=== PATIENT | female | born 1945 | race Two or more races ===

== ENCOUNTER 2024-11-02 11:35 | Emergency (ER) | payer OTHER ==
[~2024-11-02] VITALS: Ht 147.3 cm; Wt 36.3 kg
[2024-11-02] MEDS ORDERED: VERELAN PM100 MG (11:57)
[2024-11-02] MEDS ORDERED: CRESTOR40 MG (11:58)
[2024-11-02] MEDS ORDERED: PLAVIX75 MG (11:58)
[2024-11-02] MEDS ORDERED: SYNTHROID50 MCG PO (11:58)
[2024-11-02] MEDS ORDERED: PEPCID AC10 MG (11:59)
[2024-11-02] MEDS ORDERED: BREATHERITE SP1 EAC2 MC (11:59)
[2024-11-02] MEDS ORDERED: TYLENOL ARTHRI650 MG PO (14:58)
[2024-11-02] MEDS ORDERED: METAXALONE800 MG PO (14:58)
== END 2024-11-02 15:03 | disposition home or self-care (01) ==
LOC: ER 11:37 → EDBD 12:27 → ER 15:03
DX: M54.9 Dorsalgia, unspecified (principal); Z88.0 Allergy status to penicillin; Z88.6 Allergy status to analgesic agent

== ENCOUNTER 2025-01-22 09:35 | Emergency (ER) | payer OTHER ==
[~2025-01-22] VITALS: Ht 144.8 cm; Wt 38.1 kg
[~2025-01-22 09:35] MED LIST: BREATHERITE SP1 EAC2 MC; CRESTOR40 MG; METAXALONE800 MG PO; PEPCID AC10 MG; PLAVIX75 MG; SYNTHROID50 MCG PO; TYLENOL ARTHRI650 MG PO; VERELAN PM100 MG
[2025-01-22] MEDS ORDERED: ALPRAZOLAM OD0.25 MG PO (10:12)
[2025-01-22] MEDS ORDERED: UCERIS9 MG (10:13)
[2025-01-22] MEDS ORDERED: ALL DAY ALLERGY10 M3 (10:13)
[2025-01-22] MEDS ORDERED: ALLERGY RELIE15.8 ML (10:14)
[2025-01-22] MEDS ORDERED: PLAVIX75 MG PO (10:14)
[2025-01-22] MEDS ORDERED: CITALOPRAM HBR40 MG PO (10:14)
[2025-01-22] MEDS ORDERED: VITAMIN D310 MCG/1 M (10:14)
[2025-01-22] MEDS ORDERED: PANTOPRAZO40 MG/50 M (10:15)
[2025-01-22] MEDS ORDERED: ROSUVASTATIN CA10 MG PO (10:15)
[2025-01-22] MEDS ORDERED: TUSSI PRES-B L480 ML (10:16)
[2025-01-22 11:22] LABS: HEMATOCRIT 36.6 % (36.0-45.00); HEMOGLOBIN 12.3 g/dL (12.0-15.00); MEAN CELL VOLUME 86.5 fL (80.00-100.00); MEAN CORPUSCULAR HGB CONC 33.5 g/dl (32.0-36.0); PLATELET COUNT 307 K/uL (150-450); RED BLOOD COUNT 4.23 M/uL (4.00-6.00); RED CELL DISTRIBUTION WIDTH 14.5 % (11.5-14.5)
[2025-01-22 12:05] LABS: PH,URINE 5.5 (5.0-8.0); URINE APPEARANCE Clear; URINE BILIRRUBIN Negative (NEGATIVE); URINE BLOOD Negative; URINE COLOR Yellow; URINE GLUCOSE Negative (NEGATIVE); URINE KETONE Negative (NEGATIVE); URINE LEUKOCYTE Small; URINE NITRATE Negative; URINE PROTEIN Negative (NEGATIVE); URINE UROBILINOGEN 0.2 E.U./dl
[2025-01-22 12:07] LABS: URINE BACTERIA 50.1 uL (0.0-1933); URINE EPITHELIAL CELLS 0.3 uL (0.0-38.8); URINE RBC 1.3 uL (0.0-20.8)
[2025-01-22 12:09] LABS: CALCIUM 9.2 mg/dL (8.5-10.1); CREATININE SERUM 0.58 mg/dL (0.55-1.02); GFR 100.28; POTASSIUM 3.92 mEq/L (3.5-5.1)
== END 2025-01-22 13:23 | disposition home or self-care (01) ==
LOC: ER 09:35
PROVIDERS: Emergency Medicine
DX: J44.9 Chronic obstructive pulmonary disease, unspecified (principal); R00.2 Palpitations; E03.9 Hypothyroidism, unspecified; Z88.0 Allergy status to penicillin; Z88.6 Allergy status to analgesic agent; Z91.011 Allergy to milk products